=== PATIENT | male | born 1945 | race Caucasian/White ===

== ENCOUNTER 2019-07-06 12:43 | Emergency (ER) | payer OTHER ==
--- NOTE | 2019-07-06 13:08 | NUR ---
task RN note: pt tawnya, report received from EMS, pt c/o left lower abd pain x 4 days, constipated x 4 days. pt attached to bp and spo2 monitors. pt a&o, resps even and unlabored. report given to DANILO Gonazlez, awaiting MD and orders at this time.
[2019-07-06 13:48] VITALS: BP 156/84
== END 2019-07-06 14:34 | disposition home or self-care (01) ==
LOC: ED 14:28
DX: R10.84 Generalized abdominal pain (principal); K59.00 Constipation, unspecified; R11.0 Nausea; I10 Essential (primary) hypertension; E78.5 Hyperlipidemia, unspecified; Z85.46 Personal history of malignant neoplasm of prostate
CPT/HCPCS: 74018; 99283

== ENCOUNTER 2019-08-12 08:20 | Inpatient (IN) | payer OTHER ==
[~2019-08-12] VITALS: Ht 180.3 cm; Wt 78.2 kg
--- NOTE | 2019-08-12 08:29 | NUR ---
BIB EMS FOR INCREASED WEAKNESS AND FAILURE TO THRIVE. PT DENIES CP, SOB, NO N/V/D. HX OF CANCER. COUGH PRESENT. AFEBRILE. VSS.
[2019-08-12] MEDS ORDERED: ONDANSETRON 2MG/ML, 2ML IVPush ONE (08:30)
[2019-08-12] MEDS ORDERED: SODIUM CHLORIDE FLUSH 10ML SYR IVF ONE (08:30)
[2019-08-12] MEDS ORDERED: SODIUM CHLORIDE 0.9% 1,000ML IVBOLUS ONE (08:30)
[2019-08-12 08:58] LABS: MEAN CORPUSCULAR HEMOGLOBIN 31.4 pg (27.5-34.5); MEAN CORPUSCULAR VOLUME 95.2 fL (81-97); MEAN PLATELET VOLUME 7.8 fL (7.4-10.4); PLATELET COUNT 269 x10^3/uL (130-400); RED BLOOD COUNT 3.47 x10^6/uL (4.38-5.82); RED CELL DISTRIBUTION WIDTH 15.4 % (9.4-14.8)
[2019-08-12] MEDS ORDERED: CALCIUM GLUCONATE 0.46MEQ/1ML IVPush ONE (09:00)
--- NOTE | 2019-08-12 09:06 | NUR ---
SENIOR [employer]IA [employer] AND PADS APPLIED PER MED REQUEST. IV ESTABLISHED, IVF. BLADDER SCAN AMOUNT 70 ML. PT STATES HE HASNT VOIDED IN 5 DAYS
[2019-08-12 09:10] LABS: INTERNATIONAL NORMALIZED RATIO 1.34 (0.93-1.1); PROTHROMBIN TIME 14.2 Seconds (9.6-11.5)
[2019-08-12] MEDS ORDERED: CALCIUM GLUCONATE 4.6 MEQ/10 ML ONE (09:10)
--- NOTE | 2019-08-12 09:26 | NUR ---
LABS TO BE REDRAWN, RN NOTIFIED OF LABS HEMOLYZED
[2019-08-12 09:27] LABS: BASOPHILS # (AUTO) 0.08 x10^3/uL (0-0.1); BASOPHILS % (AUTO) 1 % (0-1); EOSINOPHILS % (AUTO) 0 % (1-7); LYMPHOCYTES # (AUTO) 0.66 x10^3/uL (1-3.4); LYMPHOCYTES % (AUTO) 5 % (22-44); MD SCAN; MONOCYTES # (AUTO) 0.46 x10^3/uL (0.2-0.8); MONOCYTES % (AUTO) 4 % (2-9); NEUTROPHILS # (AUTO) 11.36 x10^3/uL (1.8-6.8); NEUTROPHILS % (AUTO) 90 % (42-75)
[2019-08-12 09:51] LABS: ALANINE AMINOTRANSFERASE 23 U/L (12-78); ALBUMIN 2.4 g/dL (3.4-5.0); ANION GAP 16 mmol/L (5-15); CALCIUM 8.9 mg/dL (8.5-10.1); CHLORIDE 97 mmol/L (98-107)
[2019-08-12 09:56] LABS: ALKALINE PHOSPHATASE 226 U/L (45-117); BILIRUBIN,TOTAL 0.6 mg/dL (0.2-1.0); TOTAL PROTEIN 6.4 g/dL (6.4-8.2)
[2019-08-12] MEDS ORDERED: D5%-0.45% NACL 1,000 ML IV SCH ×2 (10:00→10:08)
[2019-08-12] MEDS ORDERED: SODIUM BICARBONATE 1 MEQ/ML, 50ML VIAL ONE (10:12)
[2019-08-12] MEDS ORDERED: SODIUM POLY SULFONATE UDC 15 GM/60 ML ONE ×2 (10:12→10:35)
[2019-08-12] MEDS ORDERED: DEXTROSE 50%, 50ML SYRINGE ONE (10:13)
[2019-08-12] MEDS ORDERED: INSULIN SINGLE DOSE, ER ONE (10:14)
[2019-08-12] MEDS ORDERED: CALCIUM CHLORIDE 10%, 10ML SYR ONE (10:16)
[2019-08-12] MEDS ORDERED: ALBUTEROL 0.5%, 20ML NPPB ONE (10:30)
[2019-08-12] MEDS ORDERED: SODIUM BICARB 8.4%, 50ML SYRINGE IVPush ONE (10:30)
[2019-08-12] MEDS ORDERED: SODIUM POLY SULFONATE UDC 15 GM/60 ML PO ONE (10:30)
[2019-08-12] MEDS ORDERED: INSULIN REGULAR 100 UNITS/ML, 3ML VIAL IVPush ONE (10:30)
[2019-08-12] MEDS ORDERED: DEXTROSE 50%, 50ML SYRINGE IVPush ONE (10:30)
[2019-08-12] MEDS ORDERED: CALCIUM CHLORIDE 10%, 10ML SYR IVPush ONE (10:30)
[2019-08-12 10:41] LABS: CREATINE KINASE, TOTAL 1137 U/L (39-308)
--- NOTE | 2019-08-12 10:43 | NUR ---
MEDICATED PER ORDERS, NEPHRO AT BEDSIDE. IR CALLED FOR ETA ON [facility]. PT VSS STABLE. PT NOT IN DISTRESS, NO NEEDS AT THIS TIME
[2019-08-12] MEDS ORDERED: SODIUM CHLORIDE 0.9% 1,000 ML IV SCH (10:45)
[2019-08-12] MEDS ORDERED: ONDANSETRON ODT 4 MG PO PRN (11:00)
[2019-08-12] MEDS ORDERED: ONDANSETRON 2MG/ML, 2ML IVPush PRN (11:00)
--- NOTE | 2019-08-12 11:29 | NUR ---
IR AT BEDSIDE FOR DIALYSIS CATHETER
[2019-08-12] MEDS: SODIUM BICARBONATE 8.4% 150 MEQ in DEXTROSE 5% 1,000 ML IV SCH (12:00)
[2019-08-12] MEDS ORDERED: HEPARIN 5,000 UNITS/ML, 1ML IV PRN (12:00)
[2019-08-12] MEDS ORDERED: HEPARIN 25,000 UNITS/250ML PMX 250 ML IV PRN (12:00)
[2019-08-12] MEDS ORDERED: HEPARIN 5,000 UNITS/ML, 1ML IV ONE ×2 (12:00→14:00)
[2019-08-12] MEDS: HEPARIN 25,000 UNITS/250ML PMX 250 ML IV PRN (13:54)
[2019-08-12] MEDS: BISACODYL 10 MG SUPP PR SCH (13:55)
[2019-08-12 14:28] VITALS: BP 97/80
[2019-08-12 14:44] VITALS: BP 97/80
[2019-08-12 16:45] LABS: ANION GAP 12 mmol/L (5-15); CALCIUM 8.8 mg/dL (8.5-10.1); CHLORIDE 99 mmol/L (98-107)
[2019-08-12 17:34] VITALS: BP 117/60
[2019-08-12] MEDS: ATORVASTATIN 80 MG TABLET PO SCH (20:00)
[2019-08-12 20:41] VITALS: BP 110/60
[2019-08-12] MEDS ORDERED: ATORVASTATIN 20 MG TABLET PO SCH (21:00)
[2019-08-12] MEDS: HEPARIN 5,000 UNITS/ML, 1ML IV PRN (22:50)
[2019-08-13 02:00] VITALS: BP 107/65
[2019-08-13] MEDS: SODIUM BICARBONATE 8.4% 150 MEQ in DEXTROSE 5% 1,000 ML IV SCH (04:12)
[2019-08-13 05:51] LABS: BASOPHILS # (AUTO) 0.01 x10^3/uL (0-0.1); BASOPHILS % (AUTO) 0 % (0-1); EOSINOPHILS # (AUTO) 0.02 x10^3/uL (0-0.4); EOSINOPHILS % (AUTO) 0 % (1-7); LYMPHOCYTES # (AUTO) 0.78 x10^3/uL (1-3.4); LYMPHOCYTES % (AUTO) 8 % (22-44); MD NO; MEAN CORPUSCULAR HEMOGLOBIN 31.8 pg (27.5-34.5); MEAN CORPUSCULAR HGB CONC 33.3 g/dL (33.2-36.2); MEAN CORPUSCULAR VOLUME 95.7 fL (81-97); MEAN PLATELET VOLUME 7.6 fL (7.4-10.4); MONOCYTES # (AUTO) 0.68 x10^3/uL (0.2-0.8); MONOCYTES % (AUTO) 7 % (2-9); NEUTROPHILS # (AUTO) 7.95 x10^3/uL (1.8-6.8); NEUTROPHILS % (AUTO) 84 % (42-75); PLATELET COUNT 185 x10^3/uL (130-400); RED BLOOD COUNT 2.63 x10^6/uL (4.38-5.82); RED CELL DISTRIBUTION WIDTH 15.8 % (9.4-14.8)
[2019-08-13 06:03] LABS: ANION GAP 11 mmol/L (5-15); CALCIUM 8.1 mg/dL (8.5-10.1); CHLORIDE 96 mmol/L (98-107)
[2019-08-13 08:41] VITALS: BP 93/49
[2019-08-13] MEDS: BISACODYL 10 MG SUPP PR SCH ×2 (08:54→09:13)
[2019-08-13] MEDS: SENNA/DOCUSATE TABLET PO SCH (08:54)
[2019-08-13] MEDS ORDERED: ALBUMIN HUMAN 25% 100 ML IV PRN (11:00)
[2019-08-13] MEDS ORDERED: ALBUMIN HUMAN 25% 50 ML IV PRN (11:00)
[2019-08-13] MEDS ORDERED: BISACODYL 10 MG SUPP PR PRN (11:00)
[2019-08-13 12:50] VITALS: BP 89/48
[2019-08-13] MEDS: HEPARIN 25,000 UNITS/250ML PMX 250 ML IV PRN (13:14)
[2019-08-13] MEDS: HEPARIN 5,000 UNITS/ML, 1ML IV PRN (13:14)
[2019-08-13 20:49] VITALS: BP 101/52
[2019-08-13] MEDS: ATORVASTATIN 80 MG TABLET PO SCH (21:21)
[2019-08-14 02:00] VITALS: BP 100/58
[2019-08-14] MEDS: ACETAMINOPHEN 325 MG TABLET PO PRN (02:53)
[2019-08-14 03:17] LABS: BASOPHILS # (AUTO) 0.02 x10^3/uL (0-0.1); BASOPHILS % (AUTO) 0 % (0-1); EOSINOPHILS # (AUTO) 0.03 x10^3/uL (0-0.4); EOSINOPHILS % (AUTO) 0 % (1-7); LYMPHOCYTES # (AUTO) 0.75 x10^3/uL (1-3.4); LYMPHOCYTES % (AUTO) 9 % (22-44); MD NO; MEAN CORPUSCULAR HEMOGLOBIN 31.8 pg (27.5-34.5); MEAN CORPUSCULAR HGB CONC 33.6 g/dL (33.2-36.2); MEAN CORPUSCULAR VOLUME 94.5 fL (81-97); MEAN PLATELET VOLUME 7.5 fL (7.4-10.4); MONOCYTES # (AUTO) 0.77 x10^3/uL (0.2-0.8); MONOCYTES % (AUTO) 9 % (2-9); NEUTROPHILS # (AUTO) 6.93 x10^3/uL (1.8-6.8); NEUTROPHILS % (AUTO) 82 % (42-75); PLATELET COUNT 168 x10^3/uL (130-400); RED BLOOD COUNT 2.57 x10^6/uL (4.38-5.82); RED CELL DISTRIBUTION WIDTH 15.3 % (9.4-14.8)
[2019-08-14 03:24] LABS: ALBUMIN 2.4 g/dL (3.4-5.0); ANION GAP 9 mmol/L (5-15); CALCIUM 8.3 mg/dL (8.5-10.1); CHLORIDE 102 mmol/L (98-107)
[2019-08-14 03:32] LABS: % IRON SATURATION 59 % (20-55); ALANINE AMINOTRANSFERASE 22 U/L (12-78); ALKALINE PHOSPHATASE 176 U/L (45-117); BILIRUBIN,TOTAL 0.4 mg/dL (0.2-1.0); CREATININE 9.05 mg/dL (0.7-1.3); IRON LEVEL 79 mcg/dL (65-175); TOTAL IRON BINDING CAPACITY 135 mcg/dL (250-450); TOTAL PROTEIN 5.7 g/dL (6.4-8.2)
[2019-08-14 08:41] VITALS: BP 115/54
[2019-08-14] MEDS: SENNA/DOCUSATE TABLET PO SCH (08:45)
[2019-08-14 12:22] VITALS: BP 118/53
[2019-08-14] MEDS: HEPARIN 5,000 UNITS/ML, 1ML SQ SCH ×2 (13:32→19:29)
[2019-08-14 16:56] LABS: CULTURE INDICATED? YES; MICROSCOPIC INDICATED
[2019-08-14 18:16] LABS: OCCULT BLOOD POSITIVE (NEGATIVE)
[2019-08-14] MEDS: ATORVASTATIN 80 MG TABLET PO SCH (19:29)
[2019-08-14 19:45] VITALS: BP 143/96
[2019-08-15] MEDS: HEPARIN 5,000 UNITS/ML, 1ML SQ SCH ×3 (02:17→19:23)
[2019-08-15 04:01] VITALS: BP 131/66
[2019-08-15 05:36] LABS: BASOPHILS # (AUTO) 0.04 x10^3/uL (0-0.1); BASOPHILS % (AUTO) 0 % (0-1); EOSINOPHILS # (AUTO) 0.03 x10^3/uL (0-0.4); EOSINOPHILS % (AUTO) 0 % (1-7); LYMPHOCYTES # (AUTO) 0.88 x10^3/uL (1-3.4); LYMPHOCYTES % (AUTO) 8 % (22-44); MD NO; MEAN CORPUSCULAR HEMOGLOBIN 31.6 pg (27.5-34.5); MEAN CORPUSCULAR HGB CONC 33.1 g/dL (33.2-36.2); MEAN CORPUSCULAR VOLUME 95.6 fL (81-97); MEAN PLATELET VOLUME 7.6 fL (7.4-10.4); MONOCYTES # (AUTO) 0.88 x10^3/uL (0.2-0.8); MONOCYTES % (AUTO) 8 % (2-9); NEUTROPHILS # (AUTO) 8.76 x10^3/uL (1.8-6.8); NEUTROPHILS % (AUTO) 83 % (42-75); PLATELET COUNT 140 x10^3/uL (130-400); RED BLOOD COUNT 2.56 x10^6/uL (4.38-5.82); RED CELL DISTRIBUTION WIDTH 15.1 % (9.4-14.8)
[2019-08-15 05:46] LABS: ALBUMIN 2.2 g/dL (3.4-5.0); ANION GAP 10 mmol/L (5-15); CALCIUM 8.1 mg/dL (8.5-10.1); CHLORIDE 102 mmol/L (98-107)
[2019-08-15 05:57] LABS: ALANINE AMINOTRANSFERASE 27 U/L (12-78); ALKALINE PHOSPHATASE 184 U/L (45-117); BILIRUBIN,TOTAL 0.4 mg/dL (0.2-1.0); CREATININE 6.58 mg/dL (0.7-1.3); TOTAL PROTEIN 5.5 g/dL (6.4-8.2)
[2019-08-15 07:00] VITALS: BP 144/72
[2019-08-15] MEDS: SENNA/DOCUSATE TABLET PO SCH (08:02)
[2019-08-15] MEDS: ACETAMINOPHEN 325 MG TABLET PO PRN ×3 (08:39→23:22)
[2019-08-15 12:09] VITALS: BP 116/64
[2019-08-15 18:17] VITALS: BP 150/74
[2019-08-15] MEDS: ATORVASTATIN 80 MG TABLET PO SCH (19:23)
[2019-08-16 02:00] VITALS: BP 135/78
[2019-08-16] MEDS: HEPARIN 5,000 UNITS/ML, 1ML SQ SCH ×3 (04:10→20:22)
[2019-08-16] MEDS: ACETAMINOPHEN 325 MG TABLET PO PRN ×3 (05:33→20:22)
[2019-08-16 06:15] VITALS: BP 113/76
[2019-08-16] MEDS: SENNA/DOCUSATE TABLET PO SCH (07:57)
[2019-08-16] MEDS ORDERED: LIDOCAINE 1%, 20ML ONE (11:44)
[2019-08-16] MEDS ORDERED: MIDAZOLAM 1 MG/ML, 5ML ONE (11:46)
[2019-08-16] MEDS ORDERED: FENTANYL PF 100 MCG/2ML ONE (11:46)
[2019-08-16] MEDS ORDERED: NALOXONE 1 MG/ML, 2ML ONE (11:46)
[2019-08-16] MEDS ORDERED: FLUMAZENIL 0.1 MG/1 ML, 5ML ONE (11:46)
[2019-08-16] MEDS ORDERED: CEFAZOLIN PMX 1GM/50ML 50 ML ONE (12:04)
[2019-08-16 13:10] VITALS: BP 141/73
[2019-08-16] MEDS ORDERED: CEFTRIAXONE PMX 1GM/50ML 50 ML IV SCH (16:30)
[2019-08-16] MEDS ORDERED: hydrALAzine 20 MG/ML, 1ML IV PRN (16:30)
[2019-08-16 17:08] VITALS: BP 170/86
[2019-08-16 17:25] VITALS: BP 121/67
[2019-08-16 19:22] VITALS: BP 137/68
[2019-08-16] MEDS: ATORVASTATIN 80 MG TABLET PO SCH (20:21)
[2019-08-17 01:51] VITALS: BP 135/70
[2019-08-17] MEDS: ACETAMINOPHEN 325 MG TABLET PO PRN (03:28)
[2019-08-17] MEDS: HEPARIN 5,000 UNITS/ML, 1ML SQ SCH ×2 (05:07→12:46)
[2019-08-17 05:32] LABS: BASOPHILS # (AUTO) 0.04 x10^3/uL (0-0.1); BASOPHILS % (AUTO) 0 % (0-1); EOSINOPHILS # (AUTO) 0.06 x10^3/uL (0-0.4); EOSINOPHILS % (AUTO) 1 % (1-7); LYMPHOCYTES # (AUTO) 0.92 x10^3/uL (1-3.4); LYMPHOCYTES % (AUTO) 10 % (22-44); MD NO; MEAN CORPUSCULAR HEMOGLOBIN 31.8 pg (27.5-34.5); MEAN CORPUSCULAR HGB CONC 33.4 g/dL (33.2-36.2); MEAN CORPUSCULAR VOLUME 95.1 fL (81-97); MEAN PLATELET VOLUME 8.1 fL (7.4-10.4); MONOCYTES # (AUTO) 0.99 x10^3/uL (0.2-0.8); MONOCYTES % (AUTO) 10 % (2-9); NEUTROPHILS % (AUTO) 79 % (42-75); PLATELET COUNT 173 x10^3/uL (130-400); RED BLOOD COUNT 2.61 x10^6/uL (4.38-5.82); RED CELL DISTRIBUTION WIDTH 15.5 % (9.4-14.8)
[2019-08-17 05:43] LABS: ALBUMIN 2.1 g/dL (3.4-5.0); ANION GAP 9 mmol/L (5-15); CHLORIDE 104 mmol/L (98-107)
[2019-08-17 05:46] LABS: ALANINE AMINOTRANSFERASE 30 U/L (12-78); ALKALINE PHOSPHATASE 192 U/L (45-117); BILIRUBIN,TOTAL 0.4 mg/dL (0.2-1.0); CREATININE 4.18 mg/dL (0.7-1.3); TOTAL PROTEIN 5.6 g/dL (6.4-8.2)
[2019-08-17 08:09] VITALS: BP 139/71
[2019-08-17] MEDS: SENNA/DOCUSATE TABLET PO SCH (08:33)
[2019-08-17] MEDS: DOXYCYCLINE 100MG TABLET PO SCH ×2 (08:42→20:10)
[2019-08-17] MEDS: AMOXICILLIN/CLAV 875-125MG TABLET PO SCH ×2 (08:42→20:10)
[2019-08-17] MEDS: METOPROLOL TARTRATE 25 MG TAB PO SCH ×2 (08:44→17:15)
[2019-08-17 15:03] VITALS: BP 127/67
[2019-08-17 17:15] VITALS: BP 147/80
[2019-08-17 19:24] VITALS: BP 110/61
[2019-08-17] MEDS ORDERED: HEPARIN 5,000 UNITS/ML, 1ML IV ONE (20:00)
[2019-08-17] MEDS: ATORVASTATIN 80 MG TABLET PO SCH (20:10)
[2019-08-17] MEDS: HEPARIN 25,000 UNITS/250ML PMX 250 ML IV PRN (21:36)
[2019-08-18] MEDS: ACETAMINOPHEN 325 MG TABLET PO PRN ×2 (01:27→14:35)
[2019-08-18 01:28] VITALS: BP 148/76
[2019-08-18 04:28] LABS: ALBUMIN 2.1 g/dL (3.4-5.0); ANION GAP 8 mmol/L (5-15); CHLORIDE 106 mmol/L (98-107); CREATININE 1.74 mg/dL (0.7-1.3)
[2019-08-18 04:29] LABS: BASOPHILS # (AUTO) 0.06 x10^3/uL (0-0.1); BASOPHILS % (AUTO) 1 % (0-1); EOSINOPHILS # (AUTO) 0.08 x10^3/uL (0-0.4); EOSINOPHILS % (AUTO) 1 % (1-7); LYMPHOCYTES # (AUTO) 1.29 x10^3/uL (1-3.4); LYMPHOCYTES % (AUTO) 13 % (22-44); MD NO; MEAN CORPUSCULAR HEMOGLOBIN 31.7 pg (27.5-34.5); MEAN CORPUSCULAR HGB CONC 32.9 g/dL (33.2-36.2); MEAN CORPUSCULAR VOLUME 96.5 fL (81-97); MEAN PLATELET VOLUME 7.9 fL (7.4-10.4); MONOCYTES # (AUTO) 1.14 x10^3/uL (0.2-0.8); MONOCYTES % (AUTO) 12 % (2-9); NEUTROPHILS # (AUTO) 7.37 x10^3/uL (1.8-6.8); NEUTROPHILS % (AUTO) 74 % (42-75); PLATELET COUNT 193 x10^3/uL (130-400); RED BLOOD COUNT 2.75 x10^6/uL (4.38-5.82); RED CELL DISTRIBUTION WIDTH 15.5 % (9.4-14.8)
[2019-08-18] MEDS: HEPARIN 5,000 UNITS/ML, 1ML IV PRN ×2 (05:14→19:39)
[2019-08-18 05:24] VITALS: BP 125/68
[2019-08-18] MEDS: METOPROLOL TARTRATE 25 MG TAB PO SCH ×2 (05:26→19:20)
[2019-08-18 07:21] VITALS: BP 131/74
[2019-08-18] MEDS: SENNA/DOCUSATE TABLET PO SCH (08:32)
[2019-08-18] MEDS: DOXYCYCLINE 100MG TABLET PO SCH ×2 (08:32→21:20)
[2019-08-18] MEDS: AMOXICILLIN/CLAV 875-125MG TABLET PO SCH ×2 (08:32→21:20)
[2019-08-18] MEDS ORDERED: POTASSIUM CHLORIDE 20 MEQ TAB.ER.PRT PO ONE (09:00)
[2019-08-18] MEDS ORDERED: ERGOCALCIFEROL 50,000 UNIT CAPSULE PO SCH (09:00)
[2019-08-18] MEDS ORDERED: REGADENOSON 0.4 MG/5 ML SYRINGE ONE (11:19)
[2019-08-18 13:10] LABS: BASOPHILS # (AUTO) 0.01 x10^3/uL (0-0.1); BASOPHILS % (AUTO) 0 % (0-1); EOSINOPHILS # (AUTO) 0.04 x10^3/uL (0-0.4); EOSINOPHILS % (AUTO) 0 % (1-7); LYMPHOCYTES # (AUTO) 0.84 x10^3/uL (1-3.4); LYMPHOCYTES % (AUTO) 8 % (22-44); MD NO; MEAN CORPUSCULAR HEMOGLOBIN 31.8 pg (27.5-34.5); MEAN CORPUSCULAR HGB CONC 33.3 g/dL (33.2-36.2); MEAN CORPUSCULAR VOLUME 95.7 fL (81-97); MEAN PLATELET VOLUME 7.7 fL (7.4-10.4); MONOCYTES # (AUTO) 1.08 x10^3/uL (0.2-0.8); MONOCYTES % (AUTO) 11 % (2-9); NEUTROPHILS # (AUTO) 8.34 x10^3/uL (1.8-6.8); NEUTROPHILS % (AUTO) 81 % (42-75); PLATELET COUNT 198 x10^3/uL (130-400); RED BLOOD COUNT 2.89 x10^6/uL (4.38-5.82)
[2019-08-18 13:28] VITALS: BP 120/68
[2019-08-18] MEDS ORDERED: POTASSIUM CHLORIDE 10 MEQ TABLET.ER ONE (14:25)
[2019-08-18] MEDS ORDERED: POTASSIUM CHLORIDE 20 MEQ TAB.ER.PRT ONE (14:33)
[2019-08-18 19:14] LABS: BASOPHILS # (AUTO) 0.05 x10^3/uL (0-0.1); BASOPHILS % (AUTO) 1 % (0-1); EOSINOPHILS # (AUTO) 0.13 x10^3/uL (0-0.4); EOSINOPHILS % (AUTO) 1 % (1-7); LYMPHOCYTES # (AUTO) 1.29 x10^3/uL (1-3.4); LYMPHOCYTES % (AUTO) 12 % (22-44); MD NO; MEAN CORPUSCULAR HEMOGLOBIN 31.8 pg (27.5-34.5); MEAN CORPUSCULAR HGB CONC 33.6 g/dL (33.2-36.2); MEAN CORPUSCULAR VOLUME 94.7 fL (81-97); MEAN PLATELET VOLUME 7.7 fL (7.4-10.4); MONOCYTES # (AUTO) 1.23 x10^3/uL (0.2-0.8); MONOCYTES % (AUTO) 12 % (2-9); NEUTROPHILS % (AUTO) 75 % (42-75); PLATELET COUNT 198 x10^3/uL (130-400); RED BLOOD COUNT 2.65 x10^6/uL (4.38-5.82); RED CELL DISTRIBUTION WIDTH 15.6 % (9.4-14.8)
[2019-08-18] MEDS: HEPARIN 25,000 UNITS/250ML PMX 250 ML IV PRN (19:14)
[2019-08-18 19:18] VITALS: BP 128/70
[2019-08-18] MEDS: ATORVASTATIN 80 MG TABLET PO SCH (21:20)
[2019-08-18 23:42] LABS: BASOPHILS # (AUTO) 0.07 x10^3/uL (0-0.1); BASOPHILS % (AUTO) 1 % (0-1); EOSINOPHILS % (AUTO) 1 % (1-7); LYMPHOCYTES # (AUTO) 1.39 x10^3/uL (1-3.4); LYMPHOCYTES % (AUTO) 14 % (22-44); MD NO; MEAN CORPUSCULAR HEMOGLOBIN 31.8 pg (27.5-34.5); MEAN CORPUSCULAR HGB CONC 33.3 g/dL (33.2-36.2); MEAN CORPUSCULAR VOLUME 95.5 fL (81-97); MONOCYTES # (AUTO) 1.22 x10^3/uL (0.2-0.8); MONOCYTES % (AUTO) 12 % (2-9); NEUTROPHILS # (AUTO) 7.23 x10^3/uL (1.8-6.8); NEUTROPHILS % (AUTO) 72 % (42-75); PLATELET COUNT 189 x10^3/uL (130-400); RED BLOOD COUNT 2.71 x10^6/uL (4.38-5.82); RED CELL DISTRIBUTION WIDTH 15.9 % (9.4-14.8)
[2019-08-19 01:50] VITALS: BP 116/64
[2019-08-19 01:52] LABS: BASOPHILS # (AUTO) 0.06 x10^3/uL (0-0.1); BASOPHILS % (AUTO) 1 % (0-1); EOSINOPHILS # (AUTO) 0.09 x10^3/uL (0-0.4); EOSINOPHILS % (AUTO) 1 % (1-7); LYMPHOCYTES % (AUTO) 14 % (22-44); MD NO; MEAN CORPUSCULAR HEMOGLOBIN 31.9 pg (27.5-34.5); MEAN CORPUSCULAR HGB CONC 33.6 g/dL (33.2-36.2); MEAN CORPUSCULAR VOLUME 95.1 fL (81-97); MEAN PLATELET VOLUME 7.7 fL (7.4-10.4); MONOCYTES # (AUTO) 1.28 x10^3/uL (0.2-0.8); MONOCYTES % (AUTO) 12 % (2-9); NEUTROPHILS # (AUTO) 7.83 x10^3/uL (1.8-6.8); NEUTROPHILS % (AUTO) 73 % (42-75); PLATELET COUNT 207 x10^3/uL (130-400); RED BLOOD COUNT 2.73 x10^6/uL (4.38-5.82); RED CELL DISTRIBUTION WIDTH 15.7 % (9.4-14.8)
[2019-08-19 02:00] LABS: ALBUMIN 2.1 g/dL (3.4-5.0); ANION GAP 8 mmol/L (5-15); CHLORIDE 108 mmol/L (98-107); CREATININE 1.22 mg/dL (0.7-1.3)
[2019-08-19] MEDS: ACETAMINOPHEN 325 MG TABLET PO PRN ×3 (04:45→19:10)
[2019-08-19 05:17] VITALS: BP 147/79
[2019-08-19] MEDS: METOPROLOL TARTRATE 25 MG TAB PO SCH ×2 (05:18→17:29)
[2019-08-19] MEDS: AMOXICILLIN/CLAV 875-125MG TABLET PO SCH ×2 (07:49→21:08)
[2019-08-19] MEDS: DOXYCYCLINE 100MG TABLET PO SCH ×2 (07:49→21:08)
[2019-08-19] MEDS: SENNA/DOCUSATE TABLET PO SCH (07:49)
[2019-08-19 08:00] VITALS: BP 111/65
[2019-08-19] MEDS: APIXABAN 5 MG TABLET PO SCH ×2 (09:59→21:08)
[2019-08-19 14:00] VITALS: BP 118/72
[2019-08-19 14:16] LABS: OCCULT BLOOD NEGATIVE (NEGATIVE)
[2019-08-19 17:24] VITALS: BP 111/69
[2019-08-19 18:44] VITALS: BP 118/65
[2019-08-19] MEDS: ATORVASTATIN 80 MG TABLET PO SCH (21:08)
[2019-08-20 01:29] VITALS: BP 117/67
[2019-08-20] MEDS: ACETAMINOPHEN 325 MG TABLET PO PRN (01:57)
[2019-08-20] MEDS: METOPROLOL TARTRATE 25 MG TAB PO SCH ×2 (06:14→17:52)
[2019-08-20 06:18] LABS: BASOPHILS # (AUTO) 0.06 x10^3/uL (0-0.1); BASOPHILS % (AUTO) 1 % (0-1); EOSINOPHILS # (AUTO) 0.14 x10^3/uL (0-0.4); EOSINOPHILS % (AUTO) 2 % (1-7); LYMPHOCYTES # (AUTO) 1.35 x10^3/uL (1-3.4); LYMPHOCYTES % (AUTO) 15 % (22-44); MD NO; MEAN CORPUSCULAR HEMOGLOBIN 32.1 pg (27.5-34.5); MEAN CORPUSCULAR HGB CONC 33.8 g/dL (33.2-36.2); MONOCYTES # (AUTO) 1.18 x10^3/uL (0.2-0.8); MONOCYTES % (AUTO) 13 % (2-9); NEUTROPHILS # (AUTO) 6.54 x10^3/uL (1.8-6.8); NEUTROPHILS % (AUTO) 71 % (42-75); PLATELET COUNT 218 x10^3/uL (130-400); RED BLOOD COUNT 2.56 x10^6/uL (4.38-5.82); RED CELL DISTRIBUTION WIDTH 15.9 % (9.4-14.8)
[2019-08-20 06:35] VITALS: BP 130/72
[2019-08-20 06:42] LABS: ALBUMIN 2.1 g/dL (3.4-5.0); ANION GAP 10 mmol/L (5-15); CALCIUM 7.8 mg/dL (8.5-10.1); CHLORIDE 108 mmol/L (98-107); CREATININE 1.06 mg/dL (0.7-1.3)
[2019-08-20] MEDS: DOXYCYCLINE 100MG TABLET PO SCH ×2 (08:21→20:23)
[2019-08-20] MEDS: SENNA/DOCUSATE TABLET PO SCH (08:21)
[2019-08-20] MEDS: AMOXICILLIN/CLAV 875-125MG TABLET PO SCH ×2 (08:21→20:23)
[2019-08-20] MEDS: APIXABAN 5 MG TABLET PO SCH ×2 (08:22→20:23)
[2019-08-20] MEDS: OXYcodone/APAP 5/325MG TABLET PO PRN ×4 (08:27→20:23)
[2019-08-20] MEDS: POTASSIUM CHLORIDE 20 MEQ TAB.ER.PRT PO SCH (09:27)
[2019-08-20 12:14] VITALS: BP 111/69
[2019-08-20 19:31] VITALS: BP 112/61
[2019-08-20] MEDS: ATORVASTATIN 80 MG TABLET PO SCH (20:23)
[2019-08-21] MEDS: OXYcodone/APAP 5/325MG TABLET PO PRN ×6 (00:12→22:23)
[2019-08-21 01:47] VITALS: BP 107/61
[2019-08-21 05:06] LABS: BASOPHILS # (AUTO) 0.05 x10^3/uL (0-0.1); BASOPHILS % (AUTO) 1 % (0-1); EOSINOPHILS # (AUTO) 0.24 x10^3/uL (0-0.4); EOSINOPHILS % (AUTO) 3 % (1-7); LYMPHOCYTES # (AUTO) 1.25 x10^3/uL (1-3.4); LYMPHOCYTES % (AUTO) 13 % (22-44); MD NO; MEAN CORPUSCULAR HEMOGLOBIN 32.4 pg (27.5-34.5); MEAN CORPUSCULAR HGB CONC 33.4 g/dL (33.2-36.2); MEAN CORPUSCULAR VOLUME 96.9 fL (81-97); MEAN PLATELET VOLUME 7.9 fL (7.4-10.4); MONOCYTES # (AUTO) 1.28 x10^3/uL (0.2-0.8); MONOCYTES % (AUTO) 14 % (2-9); NEUTROPHILS % (AUTO) 70 % (42-75); PLATELET COUNT 240 x10^3/uL (130-400); RED BLOOD COUNT 2.52 x10^6/uL (4.38-5.82); RED CELL DISTRIBUTION WIDTH 15.9 % (9.4-14.8)
[2019-08-21 05:16] LABS: ANION GAP 8 mmol/L (5-15); CALCIUM 7.8 mg/dL (8.5-10.1); CHLORIDE 108 mmol/L (98-107); CREATININE 0.97 mg/dL (0.7-1.3)
[2019-08-21] MEDS: METOPROLOL TARTRATE 25 MG TAB PO SCH ×2 (05:29→18:00)
[2019-08-21 06:52] VITALS: BP 106/63
[2019-08-21] MEDS ORDERED: HEPARIN 25,000 UNITS/250ML PMX 250 ML IV PRN (08:00)
[2019-08-21] MEDS ORDERED: HEPARIN 5,000 UNITS/ML, 1ML IV ONE (08:00)
[2019-08-21] MEDS ORDERED: HEPARIN 5,000 UNITS/ML, 1ML IV PRN (08:00)
[2019-08-21] MEDS: SENNA/DOCUSATE TABLET PO SCH (08:50)
[2019-08-21] MEDS: POTASSIUM CHLORIDE 20 MEQ TAB.ER.PRT PO SCH (08:50)
[2019-08-21 12:00] VITALS: BP 98/61
[2019-08-21 18:00] VITALS: BP 109/68
[2019-08-21 20:49] VITALS: BP 107/66
[2019-08-21] MEDS: ATORVASTATIN 80 MG TABLET PO SCH (21:08)
[2019-08-22] MEDS: OXYcodone/APAP 5/325MG TABLET PO PRN ×6 (02:35→21:31)
[2019-08-22 02:51] VITALS: BP 105/67
[2019-08-22 04:41] LABS: BASOPHILS # (AUTO) 0.09 x10^3/uL (0-0.1); BASOPHILS % (AUTO) 1 % (0-1); EOSINOPHILS % (AUTO) 1 % (1-7); LYMPHOCYTES # (AUTO) 1.45 x10^3/uL (1-3.4); LYMPHOCYTES % (AUTO) 16 % (22-44); MD NO; MEAN CORPUSCULAR HEMOGLOBIN 31.8 pg (27.5-34.5); MEAN CORPUSCULAR HGB CONC 33.2 g/dL (33.2-36.2); MEAN CORPUSCULAR VOLUME 95.6 fL (81-97); MEAN PLATELET VOLUME 8.2 fL (7.4-10.4); MONOCYTES # (AUTO) 1.19 x10^3/uL (0.2-0.8); MONOCYTES % (AUTO) 13 % (2-9); NEUTROPHILS # (AUTO) 6.44 x10^3/uL (1.8-6.8); NEUTROPHILS % (AUTO) 70 % (42-75); PLATELET COUNT 274 x10^3/uL (130-400); RED BLOOD COUNT 2.52 x10^6/uL (4.38-5.82); RED CELL DISTRIBUTION WIDTH 16.5 % (9.4-14.8)
[2019-08-22] MEDS: METOPROLOL TARTRATE 25 MG TAB PO SCH ×2 (05:31→17:22)
[2019-08-22] MEDS: POTASSIUM CHLORIDE 20 MEQ TAB.ER.PRT PO SCH (08:05)
[2019-08-22] MEDS: SENNA/DOCUSATE TABLET PO SCH (08:05)
[2019-08-22 08:08] VITALS: BP 97/56
[2019-08-22] MEDS ORDERED: MAGNESIUM CITRATE 300ML ORAL SOL PO PRN (08:30)
[2019-08-22] MEDS ORDERED: OXYcodone/APAP 5/325MG TABLET ONE (09:31)
[2019-08-22 14:22] VITALS: BP 100/63
[2019-08-22 19:45] VITALS: BP 112/64
[2019-08-22] MEDS: ATORVASTATIN 80 MG TABLET PO SCH (20:33)
[2019-08-22] MEDS: APIXABAN 5 MG TABLET PO SCH (20:33)
[2019-08-23 01:07] VITALS: BP 104/65
[2019-08-23] MEDS: OXYcodone/APAP 5/325MG TABLET PO PRN ×6 (01:35→22:19)
[2019-08-23] MEDS: METOPROLOL TARTRATE 25 MG TAB PO SCH ×2 (05:40→17:54)
[2019-08-23 07:13] VITALS: BP 115/68
[2019-08-23] MEDS: APIXABAN 5 MG TABLET PO SCH ×2 (08:17→20:42)
[2019-08-23] MEDS: SENNA/DOCUSATE TABLET PO SCH (08:17)
[2019-08-23] MEDS: POTASSIUM CHLORIDE 20 MEQ TAB.ER.PRT PO SCH (08:17)
[2019-08-23 12:50] VITALS: BP 99/61
[2019-08-23 20:16] VITALS: BP 92/54
[2019-08-23] MEDS: ATORVASTATIN 80 MG TABLET PO SCH (20:42)
[2019-08-24 00:59] VITALS: BP 95/58
[2019-08-24] MEDS: OXYcodone/APAP 5/325MG TABLET PO PRN ×4 (02:35→15:23)
[2019-08-24 05:18] VITALS: BP 102/64
[2019-08-24] MEDS: METOPROLOL TARTRATE 25 MG TAB PO SCH (05:18)
[2019-08-24 08:07] VITALS: BP 90/50
[2019-08-24] MEDS ORDERED: FUROSEMIDE 20 MG TABLET PO SCH (09:00)
[2019-08-24] MEDS: POTASSIUM CHLORIDE 20 MEQ TAB.ER.PRT PO SCH (09:01)
[2019-08-24] MEDS: APIXABAN 5 MG TABLET PO SCH (09:01)
[2019-08-24] MEDS: SENNA/DOCUSATE TABLET PO SCH (09:02)
[2019-08-24 09:03] VITALS: BP 86/54
[2019-08-24 12:22] VITALS: BP 90/45
[2019-08-24] MEDS ORDERED: APIX5TAB PO (14:11)
[2019-08-24] MEDS ORDERED: FURO20TA3 PO (14:11)
[2019-08-24] MEDS ORDERED: ATOR-2 PO (14:11)
[2019-08-24] MEDS ORDERED: METO25TA35 PO (14:11)
[2019-08-24 15:24] VITALS: BP 94/56
[2019-08-29] MEDS ORDERED: APIXABAN 5 MG TABLET PO SCH (21:00)
== END 2019-08-24 16:05 | DRG 682 ==
LOC: ED 09:00 → EDIP 10:25 → 3WST 12:27 → 4WST 08-16 13:00
PROVIDERS: ADMIT Internal Medicine; ATTEND Internal Medicine
PROC: 02HV33Z Insertion of Infusion Device into Superior Vena Cava, Percutaneous Approach (ICD-10-PCS; principal; 2019-08-12)
PROC: B548ZZA Ultrasonography of Superior Vena Cava, Guidance (ICD-10-PCS; 2019-08-12)
PROC: 0T9B70Z Drainage of Bladder with Drainage Device, Via Natural or Artificial Opening (ICD-10-PCS; 2019-08-14)
PROC: 5A1D70Z Performance of Urinary Filtration, Intermittent, Less than 6 Hours Per Day (ICD-10-PCS; 2019-08-14)
PROC: 0T9430Z Drainage of Left Kidney Pelvis with Drainage Device, Percutaneous Approach (ICD-10-PCS; 2019-08-16)
DX: N17.0 Acute kidney failure with tubular necrosis (principal); J96.01 Acute respiratory failure with hypoxia; E87.2 Acidosis; E87.1 Hypo-osmolality and hyponatremia; C79.51 Secondary malignant neoplasm of bone; N13.30 Unspecified hydronephrosis; E87.5 Hyperkalemia; D64.9 Anemia, unspecified; C61 Malignant neoplasm of prostate; D72.829 Elevated white blood cell count, unspecified; E78.5 Hyperlipidemia, unspecified; E83.51 Hypocalcemia; F17.290 Nicotine dependence, other tobacco product, uncomplicated; F41.9 Anxiety disorder, unspecified; I10 Essential (primary) hypertension; N50.89 Other specified disorders of the male genital organs; Z51.5 Encounter for palliative care; Z66 Do not resuscitate; Z99.2 Dependence on renal dialysis; Z20.828 Contact with and (suspected) exposure to other viral communicable diseases
CPT/HCPCS: 36415; 50432; 74022; 77001; 93017; 96365; 96375; 99291; J3490; 36556; 71045; 76770; 76942; 78452; 80048; 80053; 80069; 81001; 82272; 82306; 82330; 82550; 82728; 83540; 83550; 83605; 83615; 83690; 83735; 83880; 83970; 84100; 84153; 84402; 84403; 84484; 84550; 85025; 85379; 85520; 85610; 85730; 86140; 86704; 86706; 87086; 87340; 90935; 93005; 93306; 93970; 99156; 99157; C1894; G0378; J0690; J0696; J1644; J2250; J2785; J3010; J7070; P9047; A9502; C1729; C1751; C1769; J0360; J1642; J1815; J2310; J7030; U0001